=== PATIENT | male | born 2000 | race Caucasian/White ===

== ENCOUNTER 2023-02-06 17:20 | Emergency (ER) | payer OTHER ==
[2023-02-06 17:41] VITALS: BP 145/75; PULSE 69; RESP 18; TEMP 98; BMI 25.7
[2023-02-06] MEDS ORDERED: KETOROLAC TROMETHAMINE 30 MG/1 ML VIAL IM ONE (19:22)
[2023-02-06] MEDS ORDERED: KETOROLAC TROMETHAMINE 30 MG/1 ML VIAL ONE (19:28)
== END 2023-02-06 20:18 | disposition home or self-care (01) ==
LOC: JERFT 17:20
PROC: 3E0233Z Introduction of Anti-inflammatory into Muscle, Percutaneous Approach (ICD-10-PCS; principal; 2023-02-06)
DX: M25.512 Pain in left shoulder (principal); W01.0XXA Fall on same level from slipping, tripping and stumbling without subsequent striking against object, initial encounter
CPT/HCPCS: 73030-TC-LT-FY; 99284-25